=== PATIENT | female | born 1965 | race Caucasian/White ===

== ENCOUNTER 2016-11-23 11:05 | Emergency (ER) | payer BC, OTHER ==
[2016-11-23] MEDS ORDERED: Sodium Chloride 0.9% 1,000 ML IV ONE (11:28)
[2016-11-23] MEDS ORDERED: Ketorolac 30 MG/ML SDV IVPUSH ONE (11:29)
[2016-11-23 12:05] LABS: CHLORIDE,CL 103 mmol/L (98-115); SODIUM,NA 139 mmol/L (136-145)
--- NOTE | 2016-11-23 12:07 | EDM.PDOC ---
ED HPI GENERAL MEDICAL PROBLEM - General Chief Complaint: Abdominal Pain Stated Complaint: ABDOMINAL PAIN Time Seen by Provider: 11/23/16 11:47 Source of Information: Reports: Patient History Limitations: Reports: No Limitations - History of Present Illness INITIAL COMMENTS - FREE TEXT/NARRATIVE: Patient presents with 9/10 mid-epigastric pain that started last evening and has steadily escalated until ER arrival. Since she arrived and has been lying still the pain has dropped to 6/10. She had nausea this morning and vomited once before she came in. No nausea currently. She ate a banana shortly before she vomited but hasn't eaten or drank anything else today. Yesterday she ate and drank normally. She denies any history of ulcers or pancreatitis. She has had her gallbladder removed and a couple days later a stone in bile duct, that was removed and stented (2008). She drinks alcohol rarely. No other abdominal surgeries. She has had GERD in the past, and took Prilosec for awhile but this resolved after she lost some weight. Epigastric Pain Score (Numeric/FACES): 9 - Related Data Allergies Allergy/AdvReac Type Severity Reaction Status Date / Time No Known Drug Allergies Allergy Cannot Verified 11/23/16 11:26 Remember ED ROS GENERAL - Review of Systems Review Of Systems: See Below Constitutional: Reports: Diaphoresis (yesterday), Decreased Appetite. Denies: Fever HEENT: Denies: Throat Pain Respiratory: Denies: Shortness of Breath, Cough Cardiovascular: Denies: Chest Pain, Lightheadedness, Syncope GI/Abdominal: Reports: Abdominal Pain. Denies: Constipation, Diarrhea, Difficulty Swallowing : Denies: Dysuria, Flank Pain Musculoskeletal: Reports: No Symptoms Skin: Reports: Diaphoresis. Denies: Cyanosis, Jaundice, Mottled, Pallor Neurological: Denies: Confusion, Dizziness, Headache, Syncope, Trouble Speaking Psychiatric: Denies: Agitation, Confusion ED EXAM, GI/ABD - Physical Exam Exam: See Below Exam Limited By: No Limitations General Appearance: Alert, WD/WN, No Apparent Distress Eyes: Bilateral: Normal Appearance, EOMI Ears: Normal External Exam, Hearing Grossly Normal Nose: Normal Inspection, No Blood Throat/Mouth: Normal Lips, Normal Voice, No Airway Compromise Head: Atraumatic, Normocephalic Neck: Normal Inspection Respiratory/Chest: No Respiratory Distress, Lungs Clear, Normal Breath Sounds, Chest Non-Tender Cardiovascular: Regular Rate, Rhythm, No Murmur GI/Abdominal: Normal Bowel Sounds, Soft, No Organomegaly, No Distention, Tenderness (isolated to the mid-epigastrium; LUQ, RUQ and lower abdomen non- tender). No: Guarding, Rebound, Rigidity, Hepatomegaly, Splenomegaly, Hernia, McBurney's Sign, Henning's Sign, Aortic Pulsation, Aortic Bruit Back Exam: No: CVA Tenderness (L), CVA Tenderness (R) Extremities: Normal Inspection, Normal Range of Motion Neurological: Alert, Oriented, Normal Cognition, No Motor/Sensory Deficits Psychiatric: Normal Affect, Normal Mood Skin Exam: Warm, Dry, Intact, Normal Color, No Rash Course - Vital Signs Last Recorded V/S: Last Vital Signs Temp 97.5 F 11/23/16 11:30 Pulse 70 11/23/16 11:30 Resp 18 11/23/16 11:30 BP 99/33 L 11/23/16 12:10 Pulse Ox 97 11/23/16 11:30 - Orders/Labs/Meds Orders: Active Orders 24 hr Category Date Time Status Abdomen Pelvis w Cont [CT] Stat Exams 11/23/16 12:22 Taken CULTURE URINE [RM] Stat Lab 11/23/16 12:46 Ordered Labs: Laboratory Tests 11/23/16 11/23/16 11/23/16 Range/Units 11:35 11:35 11:35 WBC 7.3 (5.0-10.0) 10^3/uL RBC 4.94 (3.80-5.50) 10^6/uL Hgb 12.9 (12.0-16.0) g/dL Hct 38.5 (37.0-47.0) % MCV 77.9 L (82.0-92.0) fL MCH 26.0 L (27.0-31.0) pg MCHC 33.4 (32.0-36.0) g/dL RDW 13.8 (11.5-14.5) % Plt Count 231 (150-300) 10^3/uL MPV 9.1 (7.4-10.4) fL Neut % (Auto) 70.0 (50.0-70.0) % Lymph % (Auto) 24.7 (20.0-40.0) % [place] % (Auto) 3.9 (2.0-8.0) % Eos % (Auto) 0.8 L (1.0-3.0) % Baso % (Auto) 0.6 (0.0-1.0) % Neut # (Auto) 5.1 (2.5-7.0) 10^3/uL Lymph # (Auto) 1.8 (1.0-4.0) 10^3/uL [place] # (Auto) 0.3 (0.1-0.8) 10^3/uL Eos # (Auto) 0.1 (0.1-0.3) 10^3/uL Baso # (Auto) 0.0 (0.0-0.1) 10^3/uL Sodium 139 (136-145) mmol/L Potassium 4.5 (3.3-5.3) mmol/L Chloride 103 (98-115) mmol/L Carbon Dioxide 29.1 (21.0-32.0) mmol/L BUN 16 (6-25) mg/dL Creatinine 0.82 (0.51-1.17) mg/dL Est Cr Clr Drug Dosing 72.22 mL/min Estimated GFR (MDRD) > 60 mL/min Glucose 152 H (70-110) mg/dL Calcium 8.9 (8.7-10.3) mg/dL Total Bilirubin 0.5 (0.2-1.0) mg/dL AST 16 (15-37) U/L ALT 20 (12-78) U/L Alkaline Phosphatase 58 (46-116) IU/L Troponin I (0.00-0.070) ng/mL C-Reactive Protein < 0.2 (0.0-0.9) mg/dL Total Protein 7.7 (6.4-8.2) g/dL Albumin 3.74 (3.00-4.80) g/dL Lipase 115 (73-393) U/L Specimen Type Urine Color (YELLOW) Urine Appearance (CLEAR) Urine pH (5.0-9.0) Ur Specific [place] (1.005-1.030) Urine Protein (NEGATIVE) mg/dL Urine Glucose (UA) (NEGATIVE) mg/dL Urine Ketones (NEGATIVE) mg/dL Urine Occult Blood (NEGATIVE) Urine Nitrite (NEGATIVE) Urine Bilirubin (NEGATIVE) Urine Urobilinogen (0.2-1.0) E.U./dL Ur Leukocyte Esterase (NEGATIVE) Urine RBC /HPF Urine WBC /HPF Ur Epithelial Cells /LPF Urine Bacteria (NONE TO FEW) /HPF Urine Mucus (NEGATIVE) /LPF H. pylori IgG Antibody (NEGATIVE) 11/23/16 11/23/16 11/23/16 Range/Units 11:35 11:35 12:26 WBC (5.0-10.0) 10^3/uL RBC (3.80-5.50) 10^6/uL Hgb (12.0-16.0) g/dL Hct (37.0-47.0) % MCV (82.0-92.0) fL MCH (27.0-31.0) pg MCHC (32.0-36.0) g/dL RDW (11.5-14.5) % Plt Count (150-300) 10^3/uL MPV (7.4-10.4) fL Neut % (Auto) (50.0-70.0) % Lymph % (Auto) (20.0-40.0) % [place] % (Auto) (2.0-8.0) % Eos % (Auto) (1.0-3.0) % Baso % (Auto) (0.0-1.0) % Neut # (Auto) (2.5-7.0) 10^3/uL Lymph # (Auto) (1.0-4.0) 10^3/uL [place] # (Auto) (0.1-0.8) 10^3/uL Eos # (Auto) (0.1-0.3) 10^3/uL Baso # (Auto) (0.0-0.1) 10^3/uL Sodium (136-145) mmol/L Potassium (3.3-5.3) mmol/L Chloride (98-115) mmol/L Carbon Dioxide (21.0-32.0) mmol/L BUN (6-25) mg/dL Creatinine (0.51-1.17) mg/dL Est Cr Clr Drug Dosing mL/min Estimated GFR (MDRD) mL/min Glucose (70-110) mg/dL Calcium (8.7-10.3) mg/dL Total Bilirubin (0.2-1.0) mg/dL AST (15-37) U/L ALT (12-78) U/L Alkaline Phosphatase (46-116) IU/L Troponin I 0.05 (0.00-0.070) ng/mL C-Reactive Protein (0.0-0.9) mg/dL Total Protein (6.4-8.2) g/dL Albumin (3.00-4.80) g/dL Lipase (73-393) U/L Specimen Type Urincc Urine Color Yellow (YELLOW) Urine Appearance Clear (CLEAR) Urine pH 7.5 (5.0-9.0) Ur Specific [place] 1.020 (1.005-1.030) Urine Protein 30 H (NEGATIVE) mg/dL Urine Glucose (UA) Negative (NEGATIVE) mg/dL Urine Ketones Negative (NEGATIVE) mg/dL Urine Occult Blood Moderate H (NEGATIVE) Urine Nitrite Negative (NEGATIVE) Urine Bilirubin Negative (NEGATIVE) Urine Urobilinogen 0.2 (0.2-1.0) E.U./dL Ur Leukocyte Esterase Trace H (NEGATIVE) Urine RBC 5-10 H /HPF Urine WBC 5-10 H /HPF Ur Epithelial Cells Many H /LPF Urine Bacteria Few (NONE TO FEW) /HPF Urine Mucus Moderate H (NEGATIVE) /LPF H. pylori IgG Antibody Negative (NEGATIVE) 11/23/16 Range/Units 14:35 WBC (5.0-10.0) 10^3/uL RBC (3.80-5.50) 10^6/uL Hgb (12.0-16.0) g/dL Hct (37.0-47.0) % MCV (82.0-92.0) fL MCH (27.0-31.0) pg MCHC (32.0-36.0) g/dL RDW (11.5-14.5) % Plt Count (150-300) 10^3/uL MPV (7.4-10.4) fL Neut % (Auto) (50.0-70.0) % Lymph % (Auto) (20.0-40.0) % [place] % (Auto) (2.0-8.0) % Eos % (Auto) (1.0-3.0) % Baso % (Auto) (0.0-1.0) % Neut # (Auto) (2.5-7.0) 10^3/uL Lymph # (Auto) (1.0-4.0) 10^3/uL [place] # (Auto) (0.1-0.8) 10^3/uL Eos # (Auto) (0.1-0.3) 10^3/uL Baso # (Auto) (0.0-0.1) 10^3/uL Sodium (136-145) mmol/L Potassium (3.3-5.3) mmol/L Chloride (98-115) mmol/L Carbon Dioxide (21.0-32.0) mmol/L BUN (6-25) mg/dL Creatinine (0.51-1.17) mg/dL Est Cr Clr Drug Dosing mL/min Estimated GFR (MDRD) mL/min Glucose (70-110) mg/dL Calcium (8.7-10.3) mg/dL Total Bilirubin (0.2-1.0) mg/dL AST (15-37) U/L ALT (12-78) U/L Alkaline Phosphatase (46-116) IU/L Troponin I < 0.04 (0.00-0.070) ng/mL C-Reactive Protein (0.0-0.9) mg/dL Total Protein (6.4-8.2) g/dL Albumin (3.00-4.80) g/dL Lipase (73-393) U/L Specimen Type Urine Color (YELLOW) Urine Appearance (CLEAR) Urine pH (5.0-9.0) Ur Specific [place] (1.005-1.030) Urine Protein (NEGATIVE) mg/dL Urine Glucose (UA) (NEGATIVE) mg/dL Urine Ketones (NEGATIVE) mg/dL Urine Occult Blood (NEGATIVE) Urine Nitrite (NEGATIVE) Urine Bilirubin (NEGATIVE) Urine Urobilinogen (0.2-1.0) E.U./dL Ur Leukocyte Esterase (NEGATIVE) Urine RBC /HPF Urine WBC /HPF Ur Epithelial Cells /LPF Urine Bacteria (NONE TO FEW) /HPF Urine Mucus (NEGATIVE) /LPF H. pylori IgG Antibody (NEGATIVE) Meds: Medications Discontinued Medications Generic Name Dose Route Start Last Admin Trade Name Freq PRN Reason Stop Dose Admin Al Hydroxide/Mg Hydroxide 45 ml 11/23/16 14:03 11/23/16 14:36 Gi Cocktail PO 11/23/16 14:04 45 ml ONETIME ONE Administration Sodium Chloride 1,000 mls @ 999 mls/hr 11/23/16 11:28 11/23/16 12:02 Normal Saline IV 11/23/16 12:28 999 mls/hr .BOLUS ONE Administration Iopamidol 75 ml 11/23/16 13:11 11/23/16 14:36 Isovue-300 (61%) IV 11/23/16 13:12 Not Given ONETIME ONE Ketorolac Tromethamine 30 mg 11/23/16 11:29 11/23/16 11:54 Toradol IVPUSH 11/23/16 11:30 30 mg ONETIME ONE Administration Ketorolac Tromethamine Confirm 11/23/16 14:32 11/23/16 14:36 Toradol Administered 11/23/16 14:33 Not Given Dose 80 mg .ROUTE .STK-MED ONE Sodium Chloride 50 ml 11/23/16 13:15 Normal Saline FLUSH ASDIRECTED TOMAS - Re-Assessments/Exams Free Text/Narrative Re-Assessment/Exam: 11/23/16 12:47 Patient is stable and feeling much better. Her pain dropped from 6 to 1 after the Toradol. A liter of NS is given. Labs look quite normal. UA is mildly suggestive of UTI. Discussed findings with patient. Pt denies and just finished her period. Will get CT. 11/23/16 14:04 CT doesn't reveal any acute pathology. Mild diverticulosis but no diverticulitis. CBC, CRP, H pylori are normal. UA shows some blood and a few bacteria but also epithelials, she is just at the end of a period she says. Will try GI cocktail. Her pain is up slightly to 2/10 and was 4 when she got up for the scan. 11/23/16 14:45 The troponin from initial lab draw is 0.05 and we lyndon a second for a 3-hour serial trop. That is pending. Tried GI cocktail which took her pain completely away. Discussed findings. Will discharge with Rx for oral ketorolac but should use only if necessary and hopefully the histamine blockers will work well for her. 11/23/16 15:14 Second trop is 0.04. Discussed findings and treatment plan. Pt discharged in stable condition. Departure - Departure Time of Disposition: 15:15 Disposition: Home, Self-Care 01 Condition: Good Clinical Impression: Epigastric abdominal pain - Discharge Information Instructions: Abdominal Pain, Adult, [facility] Referrals: Breanna Reynaga MD [Primary Care Provider] - Forms: ED Department Discharge Additional Instructions: 1. Take Zantac and Mylanta as directed for the pain. You could also start a longer-term PPI such as Prilosec or Nexium as we discussed. 2. The ketorolac may aggravate your stomach lining especially if this is an ulcer so use only if necessary. 3. Follow up with Dr. Carlos next week. You may need an EGD to further evaluate this and she can arrange that as well. 4. Return to ER as needed. - My Orders Last 24 Hours: My Active Orders 11/23/16 12:22 Abdomen Pelvis w Cont [CT] Stat 11/23/16 12:46 CULTURE URINE [RM] Stat - Assessment/Plan Last 24 Hours: My Active Orders 11/23/16 12:22 Abdomen Pelvis w Cont [CT] Stat 11/23/16 12:46 CULTURE URINE [RM] Stat
[2016-11-23] MEDS ORDERED: Ketorolac 10 MG Tab PO PRN (13:00)
[2016-11-23] MEDS: Iopamidol 612 MG/ML 75 ML Bottle IV ONE ×2 (13:00→14:36)
[2016-11-23] MEDS ORDERED: Sodium Chloride 0.9% 50 ML SDV FLUSH SCH (13:15)
[2016-11-23] MEDS ORDERED: GI Cocktail 45 ML BOTTLE PO ONE (14:03)
[2016-11-23] MEDS ORDERED: Ketorolac 10 MG Tab ONE (14:32)
[2016-11-23 14:38] VITALS: BP 99/33
== END 2016-11-23 15:25 | disposition home or self-care (01) ==
LOC: KA.ED 11:05
DX: R10.13 Epigastric pain (principal)
CPT/HCPCS: 36415; 74177; 80053; 81001; 83690; 84484; 85025; 86140; 86318; 87086; 96361; 96374; 99284; A9270; J1885; J7030; Q9967